=== PATIENT | female | born 1955 | race Caucasian/White ===

== ENCOUNTER 2018-05-04 08:39 | Day surgery (SDC) | payer MEDICARE, OTHER ==
[2018-04-26 11:46] LABS: APPEARANCE,URINE CLEAR; BILIRUBIN,URINE NEGATIVE (NEGATIVE); COLOR,URINE YELLOW; GLUCOSE, URINE NEGATIVE (NEGATIVE); KETONES,URINE NEGATIVE (NEGATIVE); LEUKOCYTE ESTERASE,URINE NEGATIVE (NEGATIVE); NITRITE,URINE NEGATIVE (NEGATIVE); PROTEIN,URINE NEGATIVE (NEGATIVE); URINE SPECIFIC GRAVITY 1.012; UROBILINOGEN,URINE NEGATIVE mg/dL (<2.0)
[2018-04-26 12:33] LABS: HEMATOCRIT 38.2 % (36.0-47.0); HEMOGLOBIN 12.9 g/dL (12.0-15.5); MEAN CORPUSCULAR HEMOGLOBIN 31.1 pg (27.0-33.4); MEAN CORPUSCULAR HGB CONC 33.9 g/dL (32.0-36.0); MEAN CORPUSCULAR VOLUME 92 fl (80-97); PLATELET COUNT 215 10^3/uL (150-450); RED BLOOD COUNT 4.16 10^6/uL (3.72-5.28); RED CELL DISTRIBUTION WIDTH 14.1 % (11.5-14.0); WHITE BLOOD COUNT 7.1 10^3/uL (4.0-10.5)
--- NOTE | 2018-04-26 12:43 | RADIOLOGY REPORT (SQ) ---
EXAM DESCRIPTION: CHEST PA/LATERAL COMPLETED DATE/TIME: 04/26/2018 11:46 am REASON FOR STUDY: PRE-OP COMPARISON: None. EXAM PARAMETERS: NUMBER OF VIEWS: two views TECHNIQUE: Digital Frontal and Lateral radiographic views of the chest acquired. RADIATION DOSE: NA LIMITATIONS: none FINDINGS: LUNGS AND PLEURA: Mild focal scar in the left lung. No opacities, masses or pneumothorax. No pleural effusion. MEDIASTINUM AND HILAR STRUCTURES: No masses or contour abnormalities. HEART AND VASCULAR STRUCTURES: Heart normal size. No evidence for failure. BONES: No acute findings. Degenerative changes in the spine. HARDWARE: None in the chest. OTHER: No other significant finding. IMPRESSION: MILD FOCAL SCAR IN THE LEFT LUNG. NO ACUTE RADIOGRAPHIC FINDING IN THE CHEST. TECHNICAL DOCUMENTATION: JOB ID: [id number] [employer]- All Rights Reserved Reading location - IP/workstation name: [email or web address]
[2018-04-26 12:56] LABS: ANION GAP 13 (5-19); BLOOD UREA NITROGEN 17 mg/dL (7-20); CALCIUM 9.7 mg/dL (8.4-10.2); CARBON DIOXIDE 22 mmol/L (22-30); CHLORIDE 108 mmol/L (98-107); GLUCOSE 93 mg/dL (75-110); POTASSIUM 4.3 mmol/L (3.6-5.0); SODIUM 142.8 mmol/L (137-145)
--- NOTE | 2018-04-26 17:55 | EKG REPORT ---
SEVERITY:- NORMAL ECG - SINUS RHYTHM : Confirmed by: Irene Benavidez 26-Apr-2018 17:54:42
[~2018-05-04 08:39] MED LIST: ACETAMINOPHEN 1,000 MG/100 ML RTUPB IV ONE; CEFAZOLIN 2 GM/D5W RTU 2 GM/50 ML RTUPB IV SCH; DEXAMETHASONE SOD PHOSPHATE INJ 4 MG/1 ML VIAL ONE; FENTANYL CITRATE INJ/PF 100 MCG/2 ML AMPUL ONE; FENTANYL CITRATE INJ/PF 250 MCG/5 ML AMPULE ONE; LACTATED RINGERS 1000 ML IV PRN; LIDOCAINE 0.5% INJ-PF (5 MG/ML) 50 ML SDV SUBCUT PRN; LIDOCAINE 2% INJ-PF (20 MG/ML) 10 ML AMPUL ONE; MIDAZOLAM 2 MG/2 ML INJ ONE; ONDANSETRON HCL INJ/PF 4 MG/2 ML SDV ONE; PROPOFOL INJ 200 MG/20 ML VIAL IV ONE
[2018-05-04] MEDS ORDERED: SCOPOLAMINE HYDROBROMIDE 1.5 MG PATCH.TD72 ONE (09:57)
[2018-05-04] MEDS ORDERED: BUPIVACAINE HCL 0.5 % INJ/PF 30 ML SDV ONE (11:30)
[2018-05-04] MEDS ORDERED: EPINEPHRINE INJ/PF 1 MG/1 ML AMPULE ONE (11:37)
[2018-05-04] MEDS ORDERED: EPHEDRINE SULFATE INJ 50 MG/1 ML AMPULE ONE (12:29)
[2018-05-04] MEDS ORDERED: MORPHINE SULFATE 10 MG/ML INJ IV PRN (12:53)
[2018-05-04] MEDS ORDERED: DIPHENHYDRAMINE HCL 50 MG/ML VIAL IV PRN (12:53)
[2018-05-04] MEDS ORDERED: ONDANSETRON HCL INJ/PF 4 MG/2 ML SDV IV PRN ×2 (12:53→17:00)
[2018-05-04] MEDS ORDERED: FENTANYL CITRATE INJ/PF 100 MCG/2 ML AMPUL IV PRN ×3 (12:53)
[2018-05-04] MEDS ORDERED: MEPERIDINE HCL/PF INJ 25 MG/1 ML DISP.SYRIN IV PRN (12:53)
[2018-05-04] MEDS ORDERED: PROMETHAZINE HCL INJ 25 MG/1 ML VIAL IV PRN ×2 (12:53)
[2018-05-04] MEDS ORDERED: SUCCINYLCHOLINE CHLORIDE INJ 200 MG/10 ML VIAL ONE (15:07)
[2018-05-04] MEDS ORDERED: FENTANYL CITRATE INJ/PF 100 MCG/2 ML AMPUL ONE (16:57)
[2018-05-04] MEDS ORDERED: OXYCODONE-ACETAMINOPHEN 5-325 MG TABLET PO PRN (17:00)
[2018-05-04] MEDS ORDERED: HYDROMORPHONE HCL INJ/PF 2 MG/ML AMPULE IV PRN (17:00)
--- NOTE | 2018-05-04 17:00 | Operative Report ---
Operative Report DATE OF SURGERY: 05/04/18 PREOPERATIVE DIAGNOSIS: Right chronic rotator cuff tear, degenerative SLAP tear , AC joint DJD, impingement syndrome POSTOPERATIVE DIAGNOSIS: Same OPERATION: 1. Right shoulder arthroscopy subacromial decompression. 2. Mini open rotator cuff repair/superior capsular reconstruction utilizing dermal allograft. 3. Biceps tenotomy SURGEON: VILMA INGRAM ANESTHESIA: GA COMPLICATIONS: None ESTIMATED BLOOD LOSS: Minimal PROCEDURE: Indication for above procedure: 63-year-old female with long-standing history of right shoulder discomfort presents my office for shoulder pain. We attempted conservative measures including injections and anti-inflammatories without resolution of patient's symptoms. Patient had MRI done demonstrating chronic retracted rotator cuff tear given the chronicity of patient's injury we discussed treatment options including postoperative expectations. Risks and benefits were explained to the patient who verbalized understanding consented for the procedure. Procedure In Detail: Patient was seen and evaluated in the preoperative holding area. The upper extremity was initialized and marked. Patient received 2g of Ancef IV for bacterial prophylaxis. Patient was taken back to the operative room where transferred to the operative table and placed under general anesthesia. Once they were adequately anesthetized patient was placed in the beachchair position. Nonoperative left upper extremity and bilateral lower extremities carefully padded. Cervical spine was placed in a neutral position and padded. A surgical team debriefing was performed ensuring all instrumentation was available, the surgical procedure was discussed with possible concerns reviewed. The upper extremity was prepped with ChloraPrep and draped in a sterile fashion. A timeout was done identifying correct patient, procedure and extremity everyone in attendance agree with this and verbalized no concerns. Posterior portal was established and arthroscope introduced into the glenohumeral joint. Anterior portal was established via triangulation and a cannula placed. Exploration demonstrated intact subscapularis however significant disruption of the biceps tendon at its insertion with fraying. Thus a biceps tenotomy was performed. The labrum was carefully debrided. There was no evidence of significant glenohumeral degenerative changes however a posterior osteophyte along the humeral head was noted. Exploration of the rotator cuff demonstrated full-thickness retracted supraspinatus, infraspinatus tear with partial tearing of the teres minor. This area was debrided superiorly and inferiorly to attempt to mobilize the rotator cuff. Unfortunately I was unable to adequately mobilize the rotator cuff thus decision was made to proceed with superior capsular reconstruction. Subacromial decompression was performed any subacromial bursa was excised. The CA ligament remained in continuity to avoid postoperative superior escape. The tuberosity bone was debrided including the osteophyte posteriorly to normal appearing cancellus tissue. A advisors portal was established and a 18-gauge needle was utilized to triangulate and placed my posterior glenoid anchor. The posterior glenoid anchor was placed special attention avoiding disruption of the glenoid face under direct visualization. Via my anterior portal the anterior glenoid suture tack anchor was placed. Two 4.75 swivel lock anchors were placed along the bone adjacent to the humeral articular surface. The anchors anterior, posterior, medial and lateral distances were measured to rule out appropriate graft measurement. On the back table the measurements were placed on dermal allograft with a 1 cm bridge of tissue along the outer border and the graft excised to the appropriate dimensions. I then placed a towel on the patient's humerus and the suture from my medial row tuberosity anchors was placed through the dermal allograft. In 4 limbs of my suture tack anchors were placed through the dermal allograft. While my assistant account manager held tension of limb from the anterior and a limb from the posterior suture tack anchor were secured in the jonah technique the graft was shuttled into the joint. Once I confirm the graft was down to the glenoid remaining 2 sutures were tied and cut. I then turned my attention to the lateral row. A suture limb from the anterior and suture limb from the posterior anchor were placed in a additional 4.75 swivel lock anchor which was placed on the posterior lateral aspect of the tuberosity firmly bringing the graft down to bone. I then attempted placing a second 4.75 swivel lock anchor however given poor bone quality was unable to get fixation thus a second hole was attempted once again fixation was not feasible. I then attempted placing a 8 mm biceps tenodesis screw which was unsuccessful as well at that point I decided patient would require open repair. Longitudinal skin incision was made along the anterolateral aspect of the humerus between the anterior and lateral row 5 blunt dissection was performed the deltoid. The graft was then visualized adequately. Any peripheral leading was coagulated with bipolar cautery. Initially I attempted to secure the 2 suture limbs through a unicortical button once again given patient's poor bone quality due to unicortical button would not allow adequate fixation thus 1 of the suture limbs was loaded on a free needle and placed to the lateral cortex of the humerus and secured which brought the graft firmly down to the tuberosity. There is good stability of the graft with superior directed force. I then secured the remaining teres minor and infraspinatus to the graft with interrupted FiberWire suture. The wound was copiously irrigated with normal saline. The bone defect along the anterior lateral humerus was grafted with DBX putty. The deltoid fascia was closed with interrupted 0 Vicryl suture. Subcutaneous tissues closed with 2 -0 Vicryl suture. Skin was closed with interrupted 3-0 nylon horizontal mattress sutures. The remaining portal holes were closed with interrupted 3-0 nylon suture. 30 cc of 0.5% Marcaine without epinephrine was injected for postoperative pain control. Wounds dressed with Xeroform 4 x 4's and ABD patient was placed in abduction sling. Sponge counts, instrument counts, needle counts counts were correct. Patient was then awoken from anesthesia. Transferred from the operating room table to the operating room stretcher. There was no intraoperative complications patient tolerated procedure well stable to PACU. Postoperative plan: Patient will follow-up in the office 2 weeks postoperatively. Will begin physical therapy 4 weeks postoperatively as per massive rotator cuff repair protocol.
--- NOTE | 2018-05-04 17:00 | Discharge Summary ---
Discharge Summary (SDC) - Discharge Final Diagnosis: Massive Irreparable right shoulder rotator cuff tear Date of Surgery: 05/04/18 Discharge Date: 05/04/18 Condition: Good Treatment or Instructions: Schedule Follow Up w/ Dr. Navneet Mccormick @ [facility] to be seen in 10-14 days or as scheduled [place]: [place]: [place]: May remove dressing on postop day #3, keep incision covered and dry. Cryocuff to shoulder May begin pendulum exercises along w/ hand, wrist and elbow range of motion 4x per day or as tolerated. May remove sling for hygiene purposes otherwise continue it at all times. Stool softener of choice when on pain medication. Prescriptions: Ketorolac Tromethamine [Toradol 10 mg Tablet] 10 mg PO Q8HP PRN #10 tablet PRN Reason: Oxycodone HCl/Acetaminophen [Percocet 7.5-325 mg Tablet] 1 each PO Q6 PRN #35 tablet PRN Reason: Referrals: HAZEL FLORES DO [Primary Care Provider] - Discharge Diet: As Tolerated Respiratory Treatments at Home: Deep Breathing/Coughing, Incentive Spirometer Discharge Activity: No Lifting Over 10 Pounds, No Lifting/Push/Pulling Report the Following to Your Physician Immediately: Fever over 101 Degrees, Unusual Bleeding, Redness, Swelling, Warmth, Increased Soreness
[2018-05-04] MEDS: FENTANYL CITRATE INJ/PF 100 MCG/2 ML AMPUL ONE ×2 (17:03→17:10)
[2018-05-04] MEDS ORDERED: KETOROLAC TROMETHAMINE INJ/PF 30 MG/1 ML SDV ONE (17:34)
[2018-05-04 19:29] VITALS: BP 137/70
== END 2018-05-04 19:25 | disposition home or self-care (01) ==
LOC: OROUT 08:39
PROVIDERS: ATTEND Orthopaedic Surgery
DX: M75.121 Complete rotator cuff tear or rupture of right shoulder, not specified as traumatic (principal); M13.811 Other specified arthritis, right shoulder; I10 Essential (primary) hypertension; G47.33 Obstructive sleep apnea (adult) (pediatric); Z79.899 Other long term (current) drug therapy; Z79.1 Long term (current) use of non-steroidal anti-inflammatories (NSAID); Z85.118 Personal history of other malignant neoplasm of bronchus and lung
CPT/HCPCS: 29822; 23412; 93005; 36415 ×2; 84132; 85027; 80048; 81001; 71046; 93010; C1713 ×5; Q4125; C9359; J2250; J3490 ×2; J1100; J0171; J3010 ×2; J1885; A9270; J0330; J2405; J2704; J0690; J0131; 1630

== ENCOUNTER → 2018-05-10 | Outpatient (CLI) | payer MEDICARE, OTHER ==
--- NOTE | 2018-05-10 16:14 | RADIOLOGY REPORT (SQ) ---
EXAM DESCRIPTION: VENOUS BILATERAL LOWER COMPLETED DATE/TIME: 05/10/2018 4:02 pm REASON FOR STUDY: POST OP EDEMA R60.0 LOCALIZED EDEMA COMPARISON: None. TECHNIQUE: Dynamic and static pradhan scale and color images acquired of both lower extremity venous sy stems. Selected spectral images acquired with additional compression and augmentation maneuvers. Imag es stored on PACS. LIMITATIONS: None. FINDINGS: RIGHT LEG COMMON FEMORAL AND FEMORAL: Normal phasicity, compression and augmentation. No visualized echogenic m aterial on pradhan scale. No defects on color images. POPLITEAL: Normal compression and augmentation. No visualized echogenic material on pradhan scale. No de fects on color images. CALF VESSELS: Normal compression and augmentation. No visualized echogenic material on pradhan scale. No defects on color image. GSV AND SSV: Normal compression. No visualized echogenic material on pradhan scale. No defects on color images. ANY DEEP VENOUS INSUFFICIENCY: Not evaluated. ANY EVIDENCE OF POPLITEAL CYST: No. OTHER: No other significant finding. LEFT LEG COMMON FEMORAL AND FEMORAL: Normal phasicity, compression and augmentation. No visualized echogenic m aterial on pradhan scale. No defects on color images. POPLITEAL: Normal compression and augmentation. No visualized echogenic material on pradhan scale. No de fects on color images. CALF VESSELS: Normal compression and augmentation. No visualized echogenic material on pradhan scale. No defects on color images. GSV AND SSV: Normal compression. No visualized echogenic material on pradhan scale. No defects on color images. ANY DEEP VENOUS INSUFFICIENCY: Not evaluated. ANY EVIDENCE POPLITEAL CYST: No. OTHER: No other significant finding. IMPRESSION: NO EVIDENCE DVT OR SVT IN EITHER LEG. TECHNICAL DOCUMENTATION: JOB ID: [id number] [employer]- All Rights Reserved Reading location - IP/workstation name: [email or web address]
== END ==
LOC: SP 13:54
PROVIDERS: ATTEND Orthopaedic Surgery
DX: R60.0 Localized edema (principal)
CPT/HCPCS: 93970

== ENCOUNTER → 2020-03-27 | Outpatient (CLI) | payer MEDICARE, OTHER ==
--- NOTE | 2020-03-27 10:17 | ER RDC ASSESSMENT REPORT ---
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 - Symptoms Subjective Fever([place] feverish): Yes Chills: Yes Muscule Aches: Yes Runny Nose: Yes Sore Throat: Yes Cough (New or worsening chronic cough): Yes Shortness of breath: Yes Nausea or Vomiting: No Headache: Yes Abdominal Pain: No Diarrhea(3 or more loose stools in last 24 hours): No - Do you have any of the following Chronic lung disease: Asthma or emphysema or COPD: No Cystic Fibrosis: No Diabetes: No High Blood Pressure: No Cardiovascular Disease: No Chronic Kidney Disease: No Chronic Liver Disease: No Chronic blood disorder like Sickle Cell Disease: No Weak immune system due to disease or medication: No Immune System Comment: History of endometrial cancer and continues to take hormone medication cancer medication for it Neurologic condition that limits movement: No Developmental delay - Moderate to Severe: No Recent (within past 2 weeks) or current : No Morbid Obesity (>100 pounds over ideal weight): No Obesity Comment: Height 5 feet 7 inches weight 260 pounds - Objective Temperature: 98.3 F Pulse Rate: 68 Respiratory Rate: 20 Blood Pressure: 132/69 O2 Sat by Pulse Oximetry: 96 Objective: Given above, testing performed: If Testing Performed: Test Specimen Type Sent to General - General Information source: Patient Notes: Patient here at [facility] for COVID testing reports started to feel ill last Thursday evening thought was having allergies but has worsened has not taken her temperature but does have chills muscle aches runny nose sore throat and a cough cough is dry improving does report shortness of breath with the cough denies nausea or vomiting complains of a headache and denies abdominal pain or diarr hea. Sees Dr. Saldana and has contacted her with patient complaints. - Related Data Allergies/Adverse Reactions: No Known Allergies Allergy (Unverified 04/26/18 10:20) Past Medical History - General Information source: Patient - Social History Smoking Status: Never Smoker - Past Medical History Cardiac Medical History: Reports: Hx Hypertension Denies: Hx Coronary Artery Disease, Hx Heart Attack Pulmonary Medical History: Reports: Hx Pneumonia - hx of Denies: Hx Asthma, Hx Bronchitis, Hx COPD Neurological Medical History: Denies: Hx Cerebrovascular Accident, Hx Seizures Musculoskeletal Medical History: Reports Hx Arthritis - knees Physical Exam - General General appearance: Appears well, Alert In distress: None Notes: PHYSICAL EXAMINATION: GENERAL: Well-appearing and in no acute distress. HEAD: Atraumatic, normocephalic. EYES: sclera anicteric, conjunctiva are normal. ENT: nares patent. Moist mucous membranes. NECK: Normal range of motion, supple without lymphadenopathy LUNGS: CTAB and equal. No wheezes rales or rhonchi. Resp even and unlabored. Lung sounds clear. Occasional dry cough noted with deep inspiration. HEART: Regular rate and rhythm without murmurs ABDOMEN: Soft, nontender, normal bowel sounds, no guarding. EXTREMITIES:No cyanosis. NEUROLOGICAL: Normal speech. PSYCH: Normal mood, normal affect. SKIN: Warm, Dry, normal turgor, Diagnostic Results Laboratory Results: Patient informed of negative rapid strep and negative rapid flu results pending strep culture pending COVID testing results. Patient provided instructions rega rding COVID to include: As a person under investigation for Covid 19, the [place] department of Health and Human Services, division of public health advises you to adhere to the following guidance until your test results are reported to you. If your test result is positive, you will receive additional information from your provider and your local health department at that time. Remain at home until you are cleared by the health provider or public health authorities. Keep a log of visitors to your home, notify any visitors to your home of your isolation status. If you plan to move to a new address or leave the [facility], notify the local health department in your County. Call your doctor or seek care if you have an urgent medical need. Before seeking medical care, call ahead to get instructions from the provider before arriving at the medical office clinic or hospital. Notify them that you are being tested for the virus that causes Covid 19 so that arrangements can be mad e, as necessary, to prevent transmission to others in the healthcare setting. Next, notify the local health department in your county. If a medical emergency arises and you need to call 911, inform the first responders that you are being tested for the virus that causes Covid 19. Next, notify the local health department in your county. Patient Education/Counseling Counseling/Education: Patient presents with upper respiratory symptoms worrisome for possible Covid 19. Patient does not have emergency worring symptoms such as difficulty breathing, shortness of breath, chest pain, pressure, confusion or cyanosis. Patient appears suitable for discharge. Patient instructed to follow up with Dr. Saldana. To ED for persistent or worsening symptoms. Patient's vital signs are stable and patient is nontoxic in appearance. Good return precautions have been discussed with patient, patient verbalized understanding and is agreeable with discharge plan of care at this time. RDC Discharge - Discharge Clinical Impression: COVID - 19 SCREENING Condition: Stable Disposition: Home; Selfcare
[2020-03-27 12:32] LABS: A TYPE INFLUENZA AG NEGATIVE (NEGATIVE); B INFLUENZA AG NEGATIVE (NEGATIVE)
[2020-03-27 13:16] VITALS: BP 132/69
== END ==
LOC: RDC 09:17
PROVIDERS: ATTEND Nurse Practitioner Family
DX: Z20.828 Contact with and (suspected) exposure to other viral communicable diseases (principal); R50.9 Fever, unspecified; R05 Cough; R06.02 Shortness of breath; J02.9 Acute pharyngitis, unspecified; R09.89 Other specified symptoms and signs involving the circulatory and respiratory systems; M79.10 Myalgia, unspecified site; R51 Headache; C54.1 Malignant neoplasm of endometrium; I10 Essential (primary) hypertension
CPT/HCPCS: 87070; 87880; 87804; U0003; C9803; 87635; 99201; 99211

== ENCOUNTER → 2020-07-11 | Outpatient (CLI) | payer MEDICARE, OTHER ==
[2020-07-11 12:06] LABS: ANION GAP 10 (5-19); BLOOD UREA NITROGEN 12 mg/dL (7-20); CALCIUM 9.7 mg/dL (8.4-10.2); CARBON DIOXIDE 24 mmol/L (22-30); CHLORIDE 107 mmol/L (98-107); GLUCOSE 95 mg/dL (75-110); POTASSIUM 5.1 mmol/L (3.6-5.0)
== END ==
LOC: OD 09:57
PROVIDERS: ATTEND Family Medicine
DX: R79.89 Other specified abnormal findings of blood chemistry (principal)
CPT/HCPCS: 36415; 80048